=== PATIENT | female | born 1970 | race Caucasian/White ===

== ENCOUNTER → 2018-03-20 | Outpatient (REF) | payer OTHER ==
[2018-03-21 10:10] LABS: CARCINOEMBRYONIC ANTIGEN 2.3 NG/ML (<2.5)
== END ==
LOC: M LAB REF 13:45
DX: C16.0 Malignant neoplasm of cardia (principal)

== ENCOUNTER → 2018-04-12 | Outpatient (CLI) | payer OTHER | LOC: M PLARAD 12:19 | DX: C16.0 Malignant neoplasm of cardia (principal); J90 Pleural effusion, not elsewhere classified | CPT/HCPCS: 78815 ==

== ENCOUNTER → 2018-04-13 | Outpatient (REF) | payer OTHER ==
[2018-04-13 16:14] LABS: IMMEDIATE SPIN CROSSMATCH 1 2
== END ==
LOC: M LAB REF 10:57
DX: D64.81 Anemia due to antineoplastic chemotherapy (principal)

== ENCOUNTER → 2018-07-24 | Outpatient (CLI) | payer OTHER ==
[~2018-07-24] MED LIST: GASTROGRAFIN SOLUTION 30ML (Q9963) As Ordered; ISOVUE-370 76% 100ML VIAL (Q9967) As Ordered
[2018-07-24 15:26] LABS: BLOOD UREA NITROGEN 26 MG/DL (7-18); GLUCOSE, FASTING 165 MG/DL (70-100)
[2018-07-24 15:27] LABS: ALKALINE PHOSPHATASE 123 U/L (45-117); ALT/SGPT 14 U/L (12-78); ANION GAP 7 MEQ/L (8-16); AST/SGOT 20 U/L (7-37); CALCIUM LEVEL 8.9 MG/DL (8.5-10.1); CARBON DIOXIDE LEVEL 29 MEQ/L (21-32); CHLORIDE LEVEL 104 MEQ/L (98-107); CREATININE FOR GFR 1.78 MG/DL (0.55-1.30); GLOMERULAR FILTRATION RATE 32.1 (>51); POTASSIUM SERUM 3.2 MEQ/L (3.5-5.1); SODIUM LEVEL 140 MEQ/L (136-145)
[2018-07-24 15:28] LABS: ALBUMIN 2.5 GM/DL (3.2-5.2); ALBUMIN/GLOBULIN RATIO 0.64 (1.00-1.93); BILIRUBIN,TOTAL 0.2 MG/DL (0.2-1.0); TOTAL PROTEIN 6.9 GM/DL (6.4-8.2)
== END ==
LOC: M RAD 14:20
DX: C15.9 Malignant neoplasm of esophagus, unspecified (principal)
CPT/HCPCS: Q9963